=== PATIENT | female | born 1950 | race Caucasian/White ===

== ENCOUNTER 2019-10-10 12:45 | Emergency (ER) | payer BC, MEDICARE ==
--- NOTE | 2019-10-10 13:27 | EDM.PDOC ---
ED HPI GENERAL MEDICAL PROBLEM - General Chief Complaint: General Stated Complaint: EYE AND HEART ISSUES Time Seen by Provider: 10/10/19 13:10 Source of Information: Reports: Patient History Limitations: Reports: No Limitations - History of Present Illness INITIAL COMMENTS - FREE TEXT/NARRATIVE: This patient presents to the ED today for evaluation of a bleeding vessel in her left eye. She states she woke up with this today but has not felt well for many months. She is reporting feeling dizzy, nauseated, and short of breath every day but states it is because she is "morbidly obese" as she has gained 100 lbs in the past year since stopping smoking. She is also complaining of a headache today. She denies chest pain. She has not had any vomiting but has had dry heaves some days. She denies alcohol or drug use. She denies recent illnesses including fever, cough, shortness of breath, or sore throat. She was diagnosed with hypertension "a while back" and was prescribed a medication that did make her feel better but never "bothered to get it filled" when she ran out. She thinks this may have been 3-4 years ago. Onset: Gradual Onset Date: 10/08/17 (States she has not felt well for a couple of years) Duration: Chronic, Constant Location: Reports: Head, Chest, Abdomen Severity: Moderate Worsens with: Reports: Movement Associated Symptoms: Reports: Diaphoresis, Headaches, Nausea/Vomiting, Shortness of Breath. Denies: Chest Pain, Fever/Chills, Loss of Appetite, Weakness Social & Family History - Tobacco Use Smoking Status *Q: Former Smoker Years of Tobacco use: 20 Used Tobacco, but Quit: Yes Month/Year Tobacco Last Used: 1999 Second Hand Smoke Exposure: No - Caffeine Use Caffeine Use: Reports: Coffee - Recreational Drug Use Recreational Drug Use: No ED ROS GENERAL - Review of Systems Review Of Systems: Comprehensive ROS is negative, except as noted in HPI. ED EXAM, GENERAL - Physical Exam Exam: See Below Exam Limited By: No Limitations General Appearance: Alert, No Apparent Distress, Moderate Distress, Obese ( morbidly) Eye Exam: Left Eye: Other (subconjunctival hemorrhage), Bilateral Eye: PERRL Ears: Normal External Exam, Hearing Grossly Normal Nose: Normal Inspection Throat/Mouth: Normal Inspection, Normal Oropharynx Head: Atraumatic, Normocephalic Neck: Normal Inspection, Supple, Non-Tender, Full Range of Motion Respiratory/Chest: No Respiratory Distress, Lungs Clear, Normal Breath Sounds, No Accessory Muscle Use, Chest Non-Tender Cardiovascular: Tachycardia, Other (2+ pitting edema bilateral ankles) Extremities: Normal Capillary Refill Neurological: Oriented Skin Exam: Warm, Dry, Intact Course - Vital Signs Last Recorded V/S: Last Vital Signs Temp 36.3 C 10/10/19 13:08 Pulse 88 10/10/19 13:08 Resp 16 10/10/19 13:08 BP 239/116 H 10/10/19 13:08 Pulse Ox 95 10/10/19 13:08 - Orders/Labs/Meds Orders: Active Orders 24 hr Category Date Time Status Chest 2V [CR] Stat Exams 10/10/19 13:15 Taken Sodium Chloride 0.9% [Saline Flush] Med 10/10/19 13:15 Active 10 ml FLUSH ASDIRECTED PRN Saline Lock Insert [OM.PC] Stat Oth 10/10/19 13:15 Ordered Medication Orders Sodium Chloride (Saline Flush) 10 ml FLUSH ASDIRECTED PRN PRN Reason: Keep Vein Open Last Admin: 10/10/19 14:00 Dose: 10 ml Labs: Laboratory Tests 10/10/19 10/10/19 Range/Units 01:35 13:35 WBC 8.3 D (4.0-11.0) K/uL RBC 5.49 (3.80-5.80) M/uL Hgb 16.0 (11.5-16.5) g/dL Hct 47.1 H (37.0-47.0) % MCV 86 (76-96) fL MCH 29.1 (27.0-32.0) pg MCHC 34.0 (31.0-35.0) g/dL RDW 14.3 (11.0-16.0) % Plt Count 270 (150-500) K/uL MPV 10.5 H (6.0-10.0) fL Neut % (Auto) 48.6 (45.0-70.0) % Lymph % (Auto) 37.2 (20.0-40.0) % [place] % (Auto) 12.3 H (3.0-10.0) % Eos % (Auto) 1.2 (1.0-5.0) % Baso % (Auto) 0.7 H (0.0-0.5) % Neut # (Auto) 4.03 (2.00-7.50) K/uL Lymph # (Auto) 3.09 (1.50-4.00) K/uL [place] # (Auto) 1.02 H (0.20-0.80) K/uL Eos # (Auto) 0.10 (0.04-0.40) K/uL Baso # (Auto) 0.06 (0.02-0.10) K/uL Sodium 140 (136-145) mmol/L Potassium 3.6 (3.5-5.1) mmol/L Chloride 102 (98-107) mmol/L Carbon Dioxide 26.2 (21.0-32.0) mmol/L Anion Gap 15.4 H (5.0-15.0) mmol/L BUN 11 (8-26) mg/dL Creatinine 0.97 D (0.55-1.02) mg/dL Est Cr Clr Drug Dosing 42.47 mL/min Estimated GFR (MDRD) 57 L (>60) MLS/MIN BUN/Creatinine Ratio 11.3 (6-25) Glucose 203 H D (74-100) mg/dL Calcium 8.7 (8.5-10.1) mg/dL Meds: Medications Generic Name Dose Route Start Last Admin Trade Name Freq PRN Reason Stop Dose Admin Sodium Chloride 10 ml 10/10/19 13:15 10/10/19 14:00 Saline Flush FLUSH 10 ml ASDIRECTED PRN Administration Keep Vein Open Discontinued Medications Generic Name Dose Route Start Last Admin Trade Name Freq PRN Reason Stop Dose Admin Labetalol HCl 20 mg 10/10/19 13:15 10/10/19 14:01 Normodyne IVPUSH 10/10/19 13:16 20 mg ONETIME ONE Administration Protocol - Re-Assessments/Exams Free Text/Narrative Re-Assessment/Exam: 10/10/19 14:35 This patient presents for evaluation of "not feeling well" and leaking eye surface vessel. elevated blood pressure. There is a history of hypertension in the past and she is noted to be significantly hypertensive today. She did have excellent response to labetalol while in the ED. She will be started on Lisinopril daily. When reviewing labs, she was noted to by hyperglycemic today as well. I discussed this with the patient and decided to start her on Metformin at this time. She will be referred to the [facility] as well. The workup here is negative and the patient does not have any clinical, laboratory, EKG or historical signs of end-organ dysfunction. There is no signs of hypertensive emergency or urgency. Supportive outpatient management is therefore indicated with close follow-up of primary care physician. It is recommended that she have her blood pressure and blood sugar rechecked in the clinic in 2-3 days. She was encouraged to do serial blood pressure monitoring at home to aid primary in decision making regarding hypertension. 10/10/19 14:36 Departure - Departure Time of Disposition: 14:25 Disposition: Admitted As Inpatient 68 Condition: Good Clinical Impression: Subconjunctival hemorrhage of left eye, Hypertension, Hyperglycemia due to type 2 diabetes mellitus - Discharge Information Instructions: Type 2 Diabetes Mellitus, Diagnosis, Adult, Managing Your Hypertension Referrals: PCP,None [Primary Care Provider] - Forms: ED Department Discharge Care Plan Goals: Follow up with Dr Rausch this week, take medication as prescribed. Continue to watch your BP and blood sugar. Call or return with any questions or concerns. Sepsis Event Note - Evaluation Sepsis Screening Result: No Definite Risk - Focused Exam Vital Signs: Vital Signs Temp Pulse Resp BP Pulse Ox 10/10/19 13:08 36.3 C 88 16 239/116 H 95 Date Exam was Performed: 10/10/19 Time Exam was Performed: 14:35 - My Orders Last 24 Hours: My Active Orders 10/10/19 13:15 Chest 2V [CR] Stat Sodium Chloride 0.9% [Saline Flush] 10 ml FLUSH ASDIRECTED PRN Saline Lock Insert [OM.PC] Stat - Assessment/Plan Last 24 Hours: My Active Orders 10/10/19 13:15 Chest 2V [CR] Stat Sodium Chloride 0.9% [Saline Flush] 10 ml FLUSH ASDIRECTED PRN Saline Lock Insert [OM.PC] Stat
[2019-10-10] MEDS: Sodium Chloride 0.9% 10 ML Syringe FLUSH PRN (14:00)
[2019-10-10] MEDS: Labetalol 100 MG/20 ML MDV IVPUSH ONE (14:01)
--- NOTE | 2019-10-11 09:15 | CR ---
DATE OF SERVICE: 10/10/19 CLINICAL DATA: Hypertension. PA AND LATERAL CHEST: The heart size is normal. The lungs are clear. No pneumothorax. No pleural effusions. No evidence of acute intrathoracic disease. [id number] [facility]
== END 2019-10-10 14:30 | disposition home or self-care (01) ==
LOC: LB.ED 12:45
DX: E11.65 Type 2 diabetes mellitus with hyperglycemia (principal); H11.32 Conjunctival hemorrhage, left eye; I10 Essential (primary) hypertension; Z87.891 Personal history of nicotine dependence; E66.01 Morbid (severe) obesity due to excess calories; Z68.41 Body mass index [BMI] 40.0-44.9, adult
CPT/HCPCS: 36415; 71046; 80048; 85025; 93005; 96374; 99284; 99284-25; J3490

== ENCOUNTER 2024-05-04 14:44 | Observation (INO) | payer BC, MEDICARE ==
[2024-05-04 15:12] LABS: BASOPHILS ABSOLUTE AUTO 0.03 K/uL (0.02-0.10); BASOPHILS PERCENT AUTO 0.4 % (0.0-0.5); EOSINOPHILS ABSOLUTE AUTO 0.02 K/uL (0.04-0.40); EOSINOPHILS PERCENT AUTO 0.3 % (1.0-5.0); HEMATOCRIT 46.2 % (37.0-47.0); HEMOGLOBIN 15.4 g/dL (11.5-16.5); LYMPHOCYTES ABSOLUTE AUTO 0.84 K/uL (1.50-4.00); LYMPHOCYTES PERCENT AUTO 11.5 % (20.0-40.0); MEAN CORPUSCULAR HEMOGLOBIN 29.4 pg (27.0-32.0); MEAN CORPUSCULAR HGB CONC 33.3 g/dL (31.0-35.0); MEAN CORPUSCULAR VOLUME 88 fL (76-96); MEAN PLATELET VOLUME 10.9 fL (6.0-10.0); MONOCYTES ABSOLUTE AUTO 1.12 K/uL (0.20-0.80); MONOCYTES PERCENT AUTO 15.4 % (3.0-10.0); NEUTROPHILS ABSOLUTE AUTO 5.28 K/uL (2.00-7.50); NEUTROPHILS PERCENT AUTO 72.4 % (45.0-70.0); PLATELET COUNT,PLT 205 K/uL (150-500); RED BLOOD CELL COUNT 5.24 M/uL (3.80-5.80); RED CELL DISTRIBUTION WIDTH 13.4 % (11.0-16.0); WHITE BLOOD CELL COUNT,WBC 7.3 K/uL (4.0-11.0)
[2024-05-04] MEDS: Furosemide 40 MG/4 ML VIAL IVPUSH ONE (15:15)
[2024-05-04] MEDS: Ondansetron 4 MG/2 ML SDV IVPUSH ONE (15:25)
[2024-05-04 15:33] LABS: A/G RATIO 0.9 (0.8-2.0); ALANINE AMINOTRANSFERASE,ALT 27 U/L (12-78); ALBUMIN 3.5 g/dL (3.4-5.0); ALKALINE PHOSPHATASE 79 U/L (46-116); ANION GAP 13.9 mmol/L (5.0-15.0); ASPARTATE AMNIOTRANSFERASE,AST 19 U/L (15-37); BILIRUBIN TOTAL 0.4 mg/dL (0.0-1.0); BLOOD UREA NITROGEN,BUN 10 mg/dL (8-26); BUN/CREATININE RATIO 9.3 (6-25); CALCIUM 8.9 mg/dL (8.5-10.1); CARBON DIOXIDE,CO2 27.9 mmol/L (21.0-32.0); CHLORIDE,CL 99 mmol/L (98-107); CREATININE 1.08 mg/dL (0.55-1.02); ESTIMATED GFR 55 mL/min (>60); GLUCOSE RANDOM 312 mg/dL (74-100); POTASSIUM,K 3.8 mmol/L (3.5-5.1); PROTEIN TOTAL,TP 7.3 g/dL (6.4-8.2); SODIUM,NA 137 mmol/L (136-145)
[2024-05-04 15:44] LABS: TROPONIN I HIGH SENSITIVITY 24.4 pg/ml (<=60.4)
[2024-05-04] MEDS ORDERED: Glucagon,Human Recombinant 1 MG Vial IM PRN ×2 (16:32→21:07)
[2024-05-04] MEDS ORDERED: 50% Dextrose in Water 50 ML Syringe IVPUSH PRN ×2 (16:32→21:07)
[2024-05-04] MEDS: glipiZIDE 5 MG Tab PO ONE (17:00)
[2024-05-04] MEDS: Metoprolol Tartrate 50 MG Tab PO ONE (17:00)
[2024-05-04] MEDS: Lisinopril 10 MG Tab PO ONE (17:01)
[2024-05-04] MEDS: Insulin Regular, Human 100 Units/ML 3 ML Vial SUBCUT ONE ×2 (17:04→21:27)
[2024-05-04] MEDS: cefTRIAXone 2 GM in Sodium Chloride 0.9% 100 ML IV ONE (20:35)
[2024-05-04] MEDS: atorvaSTATin 40 MG Tab PO SCH (20:37)
[2024-05-04] MEDS: Ondansetron 4 MG/2 ML SDV IVPUSH PRN (20:38)
[2024-05-04] MEDS: Levofloxacin/Dextrose 5%-Water 750 MG in Levofloxacin/Dextrose 5%-Water 150 ML IV ONE (21:29)
[2024-05-05] MEDS: glipiZIDE 5 MG Tab PO SCH (07:21)
[2024-05-05] MEDS: Metoprolol Succinate 50 MG Tab.ER PO SCH (07:21)
[2024-05-05] MEDS: Lisinopril 20 MG Tab PO SCH (07:21)
[2024-05-05] MEDS: Hydrochlorothiazide 25 MG Tab PO SCH (07:21)
[2024-05-05 08:40] LABS: BASOPHILS ABSOLUTE AUTO 0.02 K/uL (0.02-0.10); BASOPHILS PERCENT AUTO 0.4 % (0.0-0.5); EOSINOPHILS ABSOLUTE AUTO 0.01 K/uL (0.04-0.40); EOSINOPHILS PERCENT AUTO 0.2 % (1.0-5.0); HEMATOCRIT 44.9 % (37.0-47.0); HEMOGLOBIN 14.6 g/dL (11.5-16.5); LYMPHOCYTES ABSOLUTE AUTO 1.45 K/uL (1.50-4.00); MEAN CORPUSCULAR HEMOGLOBIN 29.6 pg (27.0-32.0); MEAN CORPUSCULAR HGB CONC 32.5 g/dL (31.0-35.0); MEAN CORPUSCULAR VOLUME 91 fL (76-96); MEAN PLATELET VOLUME 11.3 fL (6.0-10.0); MONOCYTES ABSOLUTE AUTO 1.41 K/uL (0.20-0.80); MONOCYTES PERCENT AUTO 26.2 % (3.0-10.0); NEUTROPHILS ABSOLUTE AUTO 2.49 K/uL (2.00-7.50); NEUTROPHILS PERCENT AUTO 46.2 % (45.0-70.0); PLATELET COUNT,PLT 187 K/uL (150-500); RED BLOOD CELL COUNT 4.94 M/uL (3.80-5.80); WHITE BLOOD CELL COUNT,WBC 5.4 K/uL (4.0-11.0)
[2024-05-05 08:43] LABS: ANION GAP 11.6 mmol/L (5.0-15.0); BUN/CREATININE RATIO 11.4 (6-25); CALCIUM 8.7 mg/dL (8.5-10.1); CARBON DIOXIDE,CO2 31.4 mmol/L (21.0-32.0); CREATININE 1.23 mg/dL (0.55-1.02); EST CRCL DRUG DOSING (CG) 31.66 mL/min
== END 2024-05-05 11:50 | disposition home or self-care (01) ==
LOC: LB.ED 14:44 → LB.MS 19:08
PROVIDERS: ADMIT Family Medicine; ATTEND Family Medicine
DX: I10 Essential (primary) hypertension (principal); E11.65 Type 2 diabetes mellitus with hyperglycemia; J18.9 Pneumonia, unspecified organism; R53.1 Weakness; E78.00 Pure hypercholesterolemia, unspecified; Z88.5 Allergy status to narcotic agent; Z79.899 Other long term (current) drug therapy; Z20.822 Contact with and (suspected) exposure to COVID-19
CPT/HCPCS: 36415; 71046; 71250; 80048; 80053; 82947; 83605; 83880; 84484; 85025; 93005; 96365; 96366; 96367; 96374; 96375; 96376; 99222; 99238; 99285-25; A0425; A0429; A9270-GY; G0378; J0696; J1940; J1956; J2405; J3490; U0002